=== PATIENT | male | born 1945 | race Caucasian/White ===

== ENCOUNTER 2018-07-19 10:52 | Day surgery (SDC) | payer OTHER, BC ==
[2018-07-19] MEDS ORDERED: NA CHLORIDE 0.9% 1,000 ML ONE (11:15)
[2018-07-19] MEDS ORDERED: GENTAMICIN 100 MG/100 ML BAG 100 MG/100 ML BAG IV ONE (11:15)
[2018-07-19] MEDS ORDERED: PROPOFOL 200 MG/20 ML VIAL IV ONE (13:31)
[2018-07-19] MEDS ORDERED: FENTANYL CITR 100 MCG/2 ML ONE (13:31)
[2018-07-19] MEDS ORDERED: LIDOCAINE 2% MPF 5 ML VIAL ONE (13:32)
[2018-07-19] MEDS ORDERED: MIDAZOLAM HCL 2 MG/2 ML INJ ONE (13:32)
== END 2018-07-19 16:20 | disposition home or self-care (01) ==
LOC: OR 10:52
PROVIDERS: ATTEND Urology
PROC: 0T7D8DZ Dilation of Urethra with Intraluminal Device, Via Natural or Artificial Opening Endoscopic (ICD-10-PCS; principal; 2018-07-19 12:45)
DX: N40.1 Benign prostatic hyperplasia with lower urinary tract symptoms (principal); R39.12 Poor urinary stream; N42.9 Disorder of prostate, unspecified; N48.1 Balanitis; E11.9 Type 2 diabetes mellitus without complications; F17.200 Nicotine dependence, unspecified, uncomplicated; Z88.0 Allergy status to penicillin; Z80.42 Family history of malignant neoplasm of prostate; Z83.3 Family history of diabetes mellitus
CPT/HCPCS: 82962; 88305; C9740; J1580; J2250; J3010; J7030